=== PATIENT | female | born 2005 | race Hispanic/Latino ===

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

== ENCOUNTER → 2023-05-08 | Emergency (ER) | payer SELFPAY ==
[~2023-05-08] MED LIST: CODEINE 30MG/APAP 300MG TAB ONE; IBUPROFEN 400 MG TAB ONE; PROMETHAZINE 25 MG TABLET ONE
--- OUTSIDE RECORDS SUMMARY | 2023-05-08 18:58 | XMS REPORT | Continuity of Care Document ---
Author Name Unknown Address [address] [place] [address] [facility]connect Address [address] [place] [address] Care Team Providers Care Steam Fitter Helper Name Role Phone PCP, PATIENT DOES NOT HAVE A Primary Care Physic elias Unavailable Traci RN, Janneth Ambrosio Attending Clinician Heydi Powers Attending Clinician Unknown, Attending Attending Clinician HEYDI Mir Attending Clinician Unavailable UNKNOWN, ATTENDING Attending Clinician Rodolfo hdez Doctor Unassigned, [place] Attending Clinician U navailable Payers Payer Name Policy Type Policy Number Effective Date Expirati on Date Source Allergies, Adverse Reactions, Alerts Allergy Name Allergy Type Status Severity Reaction(s) Onset Date Inactive Date Treating Clinician Comments Source NO KNOWN ALLERGIE S Drug Class Active Univers [facility] Social History Social Habit Start Date Stop Date Quantity Comments Source Exposure to SARS-CoV-2 (event) 2022-10-01 00:00:00 2022-10-11 09:35:00 Not sure [facility] Tobacco use and exposure 2022-10-11 00:00:00 2022-10-11 00:00:00 Smokeless tobacco non-user [facility] Sex Assigned At 2005 00:00:00 2005 00:00:00 [facility] Smoking Status Start Date Stop Date Source Tobacco smoking consumption unknown [facility] Never smoked tobacco [facility] Medications Ordered Medication Name Filled Medication Name Start Date Stop Date Current Medication? Ordering Clinician Indication Dosage Frequency Signature (SIG) Comments Components Source fluticasone propionate 50 mcg/actuati on nasal spray 10-11 00:00: 00 Yes [id number] 2{spray } Use 2 Sprays in each nostril in the morning. [facility] fluticasone propionate 50 mcg/actuati on nasal spray 10-11 00:00: 00 Yes [id number] 2{spray } Use 2 Sprays in each nostril in the morning. [facility] predniSONE 20 mg tablet 10-11 00:00: 00 10-17 04:59 :00 No [id number] 40mg Take 2 tablets by mouth in the morning for 5 days. [facility] predniSONE 20 mg tablet 10-11 00:00: 00 10-17 04:59 :00 No [id number] 40mg Take 2 tablets by mouth in the morning for 5 days. [facility] amoxicillin 875 mg tablet 10-09 00:00: 00 Yes [facility] bromphenira mine-pseudo ephedrine-D M 2-30-10 mg/5 mL syrup 10-09 00:00: 00 Yes [facility] VENTOLIN HFA 90 mcg/actuati on inhaler 10-09 00:00: 00 Yes [facility] amoxicillin 875 mg tablet 10-09 00:00: 00 Yes [facility] bromphenira mine-pseudo ephedrine-D M 2-30-10 mg/5 mL syrup 10-09 00:00: 00 Yes [facility] VENTOLIN HFA 90 mcg/actuati on inhaler 10-09 00:00: 00 Yes [facility] Vital Signs Vital Name Observation Time Observation Value Comments Dylon castro Systolic blood pressure 2022-10-11 14:40:00 111 mm[Hg] [facility] Diastolic blood pressure 2022-10-11 14:40:00 73 mm[Hg] [facility] Heart rate 2022-10-11 14:40:00 86 /min [facility] Body temperature 2022-10-11 14:40:00 36.94 Abeba [facility] Respiratory rate 2022-10-11 14:40:00 17 /min [facility] Body height 2022-10-11 14:40:00 152.4 cm [facility] Body weight 2022-10-11 14:40:00 68.692 kg [facility] BMI 2022-10-11 14:40:00 29.58 kg/m2 [facility] Oxygen saturation in Arterial blood by Pulse oximetry 2022-10-11 14:40:00 99 /min [place] [facility] Procedures Procedure Date / Time Performed Performing Clinicia n Source POCT MOLECULAR STREP 2022-10-11 14:41:00 Unknown, Atte meek [facility] ASSIGNMENT OF BENEFITS 2022-10-11 14:27:41 Docto r Unassigned, [place] [facility] Encounters Start Date/Time End Date/Time Encounter Type Admission Type Attending [facility] Care Facility Care Department Encounter ID Source 2023-04-05 14:21:18 2023-04-05 14:21:18 Outpatient [facility] [id number] Barry 2023-03-29 15:04:26 2023-03-29 15:04:26 Outpatient [facility] [id number] Red[address] 2022-10-12 00:00:00 2022-10-12 00:00:00 Letter (Out) Janneth Aviles [facility] .0.114 [id number] [facility] 2022-10-11 09:40:00 2022-10-11 10:02:52 Urgent Care Heydi Aranda Unknown, Attending [facility] [id number] [facility] 2022-10-11 09:40:00 2022-10-11 10:02:52 Outpatient R ARANDA, HEYDI [facility] [id number] [facility] 2022-10-11 09:20:00 2022-10-11 09:20:00 Outpatient R UNKNOWN, ATTENDING [facility] [id number] [facility] 2022-10-11 00:00:00 2022-10-11 00:00:00 Orders Only Doctor Unassigned, [place] [facility] [id number] [facility] 2022-10-09 13:57:11 2022-10-09 13:57:11 Outpatient [facility] [id number] Reddy Results Test Description Test Time Test Comments Results Result Co mments Source [facility]
--- NOTE | 2023-05-08 19:58 | RAD REPORT ---
EXAM DESCRIPTION: Juan Jaffe And Yosef (2 Views)05/08/2023 7:38 pm CLINICAL HISTORY: Cough COMPARISON: 2021 FINDINGS: The lungs appear clear of acute infiltrate. The heart is normal size IMPRESSION: No acute abnormalities displayed
[2023-05-08 20:11] LABS: SARS-CoV-2 Antigen Rapid Res Negative (Negative)
--- NOTE | 2023-05-08 20:43 | ER ---
Nurse's Notes [facility] Name: Lizzette Youngblood Age: 17 yrs Sex: Female : 2005 Arrival Date: 05/08/2023 Time: 18:55 Bed DX3 Private MD: Diagnosis: Acute bronchitis, unspecified;Acute upper respiratory infection, unspecified Presentation: 05/08 19:11 Chief complaint: Patient states: LAST WEEK CONGESTION, SALGADO, AND COUGH. Coronavirus bp screen: At this time, the client does not indicate any symptoms associated with coronavirus-19. Ebola Screen: No symptoms or risks identified at this time. Initial Sepsis Screen: Does the patient meet any 2 criteria? No. Patient's initial sepsis screen is negative. Does the patient have a suspected source of infection? No. Patient's initial sepsis screen is negative. Risk Assessment: Do you want to hurt yourself or someone else? Patient reports no desire to harm self or others. Onset of symptoms is unknown. 19:11 Method Of Arrival: Ambulatory bp 19:11 Acuity: FELIX 4 bp Triage Assessment: 19:12 General: Appears in no apparent distress. ill, Behavior is calm, cooperative, bp appropriate for age. Historical: - Allergies: 19:12 No Known Drug Allergies; bp - Home Meds: 19:12 ProAir HFA 90 mcg/actuation inhalation HFAA [Active]; bp - PMHx: 19:12 Asthma; Migraine; bp - Immunization history:: Adult Immunizations up to date. - Social history:: Smoking status: Patient denies any tobacco usage or history of. Screenin:53 [facility] ED Fall Risk Assessment (Adult) History of falling in the last 3 months, jb4 including since admission No falls in past 3 months (0 pts) Confusion or Disorientation No (0 pts). Abuse screen: Denies threats or abuse. Nutritional screening: No deficits noted. Tuberculosis screening: No symptoms or risk factors identified. Assessment: 19:30 General: Appears in no apparent distress. comfortable, Behavior is calm, cooperative, jb4 appropriate for age. Pain: Denies pain. Neuro: Level of Consciousness is awake, alert, obeys commands, Oriented to person, place, time, situation. Cardiovascular: Patient's skin is warm and dry. Respiratory: Airway is patent Respiratory effort is even, unlabored, Respiratory pattern is regular, symmetrical. GI: No signs and/or symptoms were reported involving the gastrointestinal system. : No signs and/or symptoms were reported regarding the genitourinary system. EENT: No signs and/or symptoms were reported regarding the EENT system. Derm: Skin is intact, Skin is pink, warm \T\ dry. Musculoskeletal: Circulation, motion, and sensation intact. Range of motion: intact in all extremities. 20:53 Reassessment: Patient appears in no apparent distress at this time. Patient and/or jb4 family updated on plan of care and expected duration. Pain level reassessed. Patient is alert, oriented x 3, equal unlabored respirations, skin warm/dry/pink. Vital Signs: 19:11 BP 147 / 78; Pulse 92; Resp 16; Temp 97.9; Pulse Ox 100% ; Weight 64.86 kg; Height 5 bp ft. 0 in. ; 19:11 Body Mass Index 27.93 (64.86 kg, 152.4 cm) - Percentile 89.4 % bp ED Course: 18:57 Patient arrived in ED. rg4 19:09 Virgie Aldana FNP-C is [facility]. kb 19:09 Evan Canales DO is Attending Physician. kb 19:12 Triage completed. bp 19:12 Arm band placed on. bp 19:40 Chest Pa And Lat (2 Views) XRAY In Process Unspecified. EDMS 20:09 Attending Physician role handed off by Evan Canales DO sp4 20:09 Stephan Alexandra MD is Attending Physician. sp4 20:53 Patient has correct armband on for positive identification. Bed in low position. Call jb4 light in reach. Side rails up X 1. 20:53 No provider procedures requiring assistance completed. Patient did not have IV access jb4 during this emergency room visit. Administered Medications: 20:29 Drug: Acetaminophen-Codeine PO (300 mg-30 mg) 2 tabs PO once; RASS on ADMIN: Combtv4, jb4 Very Agttd3, Agttd2, Rstlss1, AlertClm0, Drwsy-1, Lt Sdtn-2, Mod Sdtn-3, Dp Sdtn-4, UnArsble-5 Route: PO; 20:29 Drug: Promethazine PO 25 mg PO once Route: PO; jb4 20:29 Drug: Ibuprofen PO 800 mg PO once Route: PO; jb4 Medication: 20:53 VIS not applicable for this client. jb4 Outcome: 20:43 Discharge ordered by . sp4 20:53 Discharged to home ambulatory, with family, jb4 20:53 Condition: stable 20:53 Discharge instructions given to patient, Instructed on discharge instructions, follow up and referral plans. medication usage, Demonstrated understanding of instructions, follow-up care, medications, Prescriptions given X 3, 20:53 Patient left the ED. jb4 Signatures: Dispatcher [employer] EDMS Virgie Aldana, KOFFI-C MODELING INSTRUCTOR-Teresa Moreno rg4 Margarito Hopper RN RN jb4 Singh Perez, DOTTY RN bp Evan Canales DO DO ms3 Stephan Alexandra MD MD sp4
--- NOTE | 2023-05-08 20:43 | EDPHYS ---
Physician Documentation [facility] Name: Lizzette Youngblood Age: 17 yrs Sex: Female : 2005 Arrival Date: 05/08/2023 Time: 18:55 Bed DX3 Private MD: ED Physician Stephan Alexandra HPI: 05/08 19:57 This 17 yrs old Female presents to ER via Ambulatory with complaints of Flu ms3 Symptoms. 19:57 17-year-old female with past medical history of asthma and migraines [place] [facility] [place] for cough that is been ongoing for 1 week, and subjective fever that occurred last night. Patient notes she also has a headache and throat pain. Patient denies any alleviating or inciting factors. Patient rates her discomfort a /10.. Historical: - Allergies: 19:12 No Known Drug Allergies; bp - Home Meds: 19:12 ProAir HFA 90 mcg/actuation inhalation HFAA [Active]; bp - PMHx: 19:12 Asthma; Migraine; bp - Immunization history:: Adult Immunizations up to date. - Social history:: Smoking status: Patient denies any tobacco usage or history of. ROS: 19:57 Cardiovascular: Negative for chest pain, and palpitations. ms3 19:57 Abdomen/GI: Negative for abdominal pain, nausea, vomiting, diarrhea, and constipation, MS/Extremity: Negative for injury and deformity, Skin: Negative for injury, rash, and discoloration, 19:57 Constitutional: Positive for chills, fever, 19:57 Respiratory: Positive for cough, 19:57 All other systems are negative, Exam: 19:57 Constitutional: This is a well developed, well nourished patient who is awake, alert, ms3 and in no acute distress. Head/Face: Normocephalic, atraumatic. Neck: Trachea midline, no cervical lymphadenopathy. Supple, full range of motion without nuchal rigidity, or vertebral point tenderness. No Meningismus. Chest/axilla: Normal chest wall appearance and motion. Nontender with no deformity. Cardiovascular: Regular rate and rhythm with a normal S1 and S2. No gallops, murmurs, or rubs. Normal PMI, no JVD. No pulse deficits. Respiratory: Lungs have equal breath sounds bilaterally, clear to auscultation and percussion. No rales, rhonchi or wheezes noted. No increased work of breathing, no retractions or nasal flaring. Abdomen/GI: Soft, non-tender, with normal bowel sounds. No distension or tympany. No guarding or rebound. No evidence of tenderness throughout. Vital Signs: 19:11 BP 147 / 78; Pulse 92; Resp 16; Temp 97.9; Pulse Ox 100% ; Weight 64.86 kg; Height 5 bp ft. 0 in. ; 19:11 Body Mass Index 27.93 (64.86 kg, 152.4 cm) - Percentile 89.4 % bp MDM: 19:29 Patient medically screened. ms3 19:57 Differential Diagnosis: Bronchitis Influenza Upper Respiratory Infection Pneumonia. ms3 20:18 Transition of care: After a detail discussion of the patient's case, care is ms3 transferred to Stephan Alexandra MD. 05/08 19:28 Order name: Flu; Complete Time: 20:40 ms3 05/08 19:28 Order name: SARS RAPID; Complete Time: 20:40 ms3 05/08 19:28 Order name: Chest Pa And Lat (2 Views) XRAY; Complete Time: 20:02 ms3 Administered Medications: 20:29 Drug: Acetaminophen-Codeine PO (300 mg-30 mg) 2 tabs PO once; RASS on ADMIN: Combtv4, jb4 Very Agttd3, Agttd2, Rstlss1, AlertClm0, Drwsy-1, Lt Sdtn-2, Mod Sdtn-3, Dp Sdtn-4, UnArsble-5 Route: PO; 20:29 Drug: Promethazine PO 25 mg PO once Route: PO; jb4 20:29 Drug: Ibuprofen PO 800 mg PO once Route: PO; jb4 Disposition Summary: 05/08/23 20:43 Discharge Ordered Problem: new sp4 Symptoms: have improved sp4 Condition: Stable sp4 Diagnosis - Acute bronchitis, unspecified sp4 - Acute upper respiratory infection, unspecified sp4 Followup: sp4 - With: Private Physician - When: 7 - 10 days - Reason: Recheck today's complaints Discharge Instructions: - Discharge Summary Sheet sp4 - Acute Bronchitis, Adult sp4 Forms: - Patient Portal Instructions sp4 Prescriptions: - dextromethorphan-guaifenesin 10-200 mg Oral capsule - take 2 capsule ORAL route every 6 hours PRN cough; 60 capsule; Refills: 0, sp4 Product Selection Permitted - Zithromax Z-Mustapha 250 mg Oral Tablet - take 1 tablet ORAL route as directed for 5 days Day 1 - take two (2) tablets sp4 one time. Day 2, 3, 4 , 5 take one (1) tablet once daily.; 6 tablet; Refills: 0, Product Selection Permitted - promethazine 25 mg Oral tablet - take 1 tablet ORAL route every 6 hours As needed PRN nausea; 30 tablet; sp4 Refills: 0, Product Selection Permitted Signatures: Dispatcher [employer] Margarito López RN RN jb4 Singh Perez RN RN Evan Posada DO DO ms3 Stephan Alexandra MD MD sp4
[2023-05-08 21:24] VITALS: BP 147/78; TEMP 97.9; O2SAT 100
== END ==
LOC: ER 18:55
DX: J20.9 Acute bronchitis, unspecified (principal); J06.9 Acute upper respiratory infection, unspecified; Z11.52 Encounter for screening for COVID-19
CPT/HCPCS: 36415; 71046; 87804; 87811; 99283; Q0169